=== PATIENT | male | born 1990 | race Hispanic/Latino ===

== ENCOUNTER 2020-02-18 09:33 | Emergency (ER) | payer OTHER ==
[2020-02-18 10:34] LABS: BASOPHILS % (AUTO) 0.1 % (0.0-5.0); HEMATOCRIT 48.9 % (42-54); LYMPHOCYTES % (AUTO) 6.4 % (21.0-51.0); MEAN CORPUSCULAR HEMOGLOBIN 30.3 pg (27.0-33.0); MEAN CORPUSCULAR HGB CONC 33.9 g/dL (32.0-36.0); MEAN CORPUSCULAR VOLUME 89.2 fL (79-99); MONOCYTES % (AUTO) 4.5 % (3.0-13.0); NEUTROPHILS % (AUTO) 88.4 % (40.0-77.0); PLATELET COUNT (AUTO) 271 K/uL (130-400); RED BLOOD CELL COUNT(AUTO) 5.48 MIL/uL (4.50-6.20); WHITE BLOOD COUNT (AUTO) 17.2 K/uL (4.8-10.8)
[2020-02-18 10:44] LABS: CARBON DIOXIDE 32 mmol/L (21-32); CHLORIDE 98 mmol/L (101-111); CREATININE 1.1 mg/dL (0.5-1.5); GLOMERULAR FILTR. RATE CALC 84 mL/min (>60); GLUCOSE,RANDOM 101 mg/dL (70-105); POTASSIUM 3.9 mmol/L (3.5-5.1); SODIUM SERUM 138 mmol/L (136-145); UREA NITROGEN, BLOOD 15 mg/dL (7-18)
[2020-02-18 10:53] LABS: INR 0.97 (0.85-1.15); PARTIAL THROMBOPLASTIN TIME 29.4 SEC (26.3-35.5); PROTHROMBIN TIME 10.5 SEC (9.6-11.6)
[2020-02-18 10:55] LABS: ALANINE AMINOTRANSFERASE 95 U/L (12-78); ALBUMIN 3.5 g/dL (3.5-5.0); ASPARTATE AMINOTRANSFERASE 33 U/L (10-37); BILIRUBIN,TOTAL 0.7 mg/dL (0.2-1.0); CREATINE KINASE, TOTAL 44 U/L (21-232); MYOGLOBIN 33 ng/mL (10-92); TOTAL PROTEIN, SERUM 8.8 g/dL (6.0-8.3); TROPONIN I < 0.04 ng/mL (0.00-0.06)
[2020-02-18 11:16] LABS: APPEARANCE,URINE Clear (CLEAR); BILIRUBIN,URINE Negative (NEGATIVE); COLOR,URINE Yellow (YELLOW); GLUCOSE, URINE (UA) 250 mg/dL (NEGATIVE); KETONES,URINE Negative (NEGATIVE); LEUKOCYTE ESTERASE ,URINE Negative (NEGATIVE); NITRATE,URINE Negative (NEGATIVE); OCCULT BLOOD,URINE Negative (NEGATIVE); PROTEIN,URINE Trace mg/dL (NEGATIVE)
[2020-02-18 12:03] LABS: BACTERIA,URINE Rare /HPF (None Seen); RBC,URINE 0-1 /HPF (0-1); SQUAMOUS EPITHELIAL CELL,UR Rare /HPF (0-2)
[2020-02-18] MEDS ORDERED: AZITHROMYCIN 500MG+NS 250ML 250 ML IV ONE (12:38)
[2020-02-18] MEDS ORDERED: ACETAMINOPHEN EXTRA STRENGTH 500 MG TABLET ONE (13:53)
[2020-02-18] MEDS ORDERED: MAGNESIUM 2GM PREMIX 50ML 50 ML IV ONE (14:06)
== END 2020-02-18 16:13 | disposition home or self-care (01) ==
LOC: EDH 09:33
DX: U07.1 COVID-19 (principal); J12.89 Other viral pneumonia; F41.9 Anxiety disorder, unspecified; Z88.8 Allergy status to other drugs, medicaments and biological substances
CPT/HCPCS: 36415; 71045; 80053; 81001; 82550; 82948 ×2; 83605; 83874; 84145; 84484; 85025; 85378; 85610; 85730; 86900; 86901; 87040 ×2; 87088; 93005 ×2; 96365; 96366; 96368; 99285; J0456; J3475

== ENCOUNTER 2021-09-27 16:27 | Emergency (ER) | payer BC, OTHER ==
[~2021-09-27] VITALS: Ht 177.8 cm; Wt 100.2 kg
[2021-09-27 16:29] VITALS: BP 163/87
[2021-09-27 16:43] LABS: APPEARANCE,URINE CLEAR (CLEAR); BILIRUBIN,URINE NEGATIVE (NEGATIVE); COLOR,URINE YELLOW (YELLOW); GLUCOSE, URINE (UA) NEGATIVE (NEGATIVE); KETONES,URINE NEGATIVE (NEGATIVE); LEUKOCYTE ESTERASE ,URINE NEGATIVE (NEGATIVE); NITRATE,URINE NEGATIVE (NEGATIVE); OCCULT BLOOD,URINE NEGATIVE (NEGATIVE); PH,URINE 6.5 (5.0-8.0); PROTEIN,URINE NEGATIVE (NEGATIVE); UROBILINOGEN,URINE 0.2 mg/dL (0.2-1.0)
[2021-09-27] MEDS ORDERED: ONDA4TAB10 PO (17:42)
== END 2021-09-27 17:51 | disposition home or self-care (01) ==
LOC: EDH 16:27
DX: J06.9 Acute upper respiratory infection, unspecified (principal); Z20.822 Contact with and (suspected) exposure to COVID-19; Z88.8 Allergy status to other drugs, medicaments and biological substances; Z90.89 Acquired absence of other organs
CPT/HCPCS: 81003; 87635; 87804 ×2; 99283; C9803

== ENCOUNTER 2022-06-30 19:20 | Emergency (ER) | payer BC ==
[~2022-06-30] VITALS: Ht 177.8 cm; Wt 102.1 kg
[~2022-06-30 19:20] MED LIST: ONDA4TAB10 PO
[2022-06-30 21:19] LABS: BASOPHILS % (AUTO) 0.5 % (0.0-5.0); EOSINOPHILS % (AUTO) 1.3 % (0.0-8.0); HEMATOCRIT 44.7 % (42-54); LYMPHOCYTES % (AUTO) 24.1 % (21.0-51.0); MEAN CORPUSCULAR HEMOGLOBIN 29.9 pg (27.0-33.0); MEAN CORPUSCULAR HGB CONC 33.6 g/dL (32.0-36.0); MONOCYTES % (AUTO) 8.6 % (3.0-13.0); NEUTROPHILS % (AUTO) 64.9 % (40.0-77.0); PLATELET COUNT (AUTO) 226 K/uL (130-400); RED BLOOD CELL COUNT(AUTO) 5.02 MIL/uL (4.50-6.20); RED CELL DISTRIBUTION WIDTH 12.2 % (11.0-15.5); WHITE BLOOD COUNT (AUTO) 11.5 K/uL (4.8-10.8)
[2022-06-30 21:29] LABS: APPEARANCE,URINE CLEAR (CLEAR); BILIRUBIN,URINE NEGATIVE (NEGATIVE); COLOR,URINE COLORLESS (YELLOW); GLUCOSE, URINE (UA) NEGATIVE (NEGATIVE); KETONES,URINE NEGATIVE (NEGATIVE); LEUKOCYTE ESTERASE ,URINE NEGATIVE Leu/uL (NEGATIVE); NITRATE,URINE NEGATIVE (NEGATIVE); OCCULT BLOOD,URINE NEGATIVE (NEGATIVE); PH,URINE 6.5 (5.0-8.0); PROTEIN,URINE NEGATIVE (NEGATIVE); UROBILINOGEN,URINE 0.2 mg/dL (0.2-1.0)
[2022-06-30 21:31] LABS: POTASSIUM 3.8 mmol/L (3.5-5.1)
[2022-06-30 21:33] LABS: BACTERIA,URINE RARE /HPF (None Seen); MUCUS,URINE RARE LPF (None Seen); RBC,URINE 0-1 /HPF (0-1); WBC,URINE 0-1 /HPF (0-1)
[2022-06-30 21:36] LABS: ALBUMIN 3.9 g/dL (3.5-5.0); TOTAL PROTEIN, SERUM 7.6 g/dL (6.0-8.3)
[2022-06-30 22:57] VITALS: BP 154/86
[2022-07-01] MEDS ORDERED: DICY10 PO (00:56)
== END 2022-07-01 01:06 | disposition home or self-care (01) ==
LOC: EDH 19:20
DX: R10.9 Unspecified abdominal pain (principal); F41.9 Anxiety disorder, unspecified; Z90.49 Acquired absence of other specified parts of digestive tract; Z98.890 Other specified postprocedural states; Z88.8 Allergy status to other drugs, medicaments and biological substances
CPT/HCPCS: 36415; 74018; 74176; 80053; 81001; 83690; 85025